=== PATIENT | female | born 1995 | race Caucasian/White ===

== ENCOUNTER 2019-12-04 20:46 | Emergency (ER) | payer MEDICAID ==
[~2019-12-04] VITALS: Ht 165.1 cm; Wt 55.4 kg
--- NOTE | 2019-12-04 21:08 | NUR ---
C/O LEFT FOOT PAIN AND SWELLING X1 DAY. PLACED VITALS SIGNS MONITORS. ERP AT BEDSIDE FOR EVAL.
[2019-12-04] MEDS ORDERED: FLUO20CA19 PO (21:12)
[2019-12-04] MEDS ORDERED: TRAZ-175 PO (21:13)
[2019-12-04] MEDS ORDERED: HYDROcodone/APAP 5/325 TABLET ONE (21:18)
[2019-12-04] MEDS ORDERED: SULFAMETH./TRIMETHOPRIM DS 800MG/160MG TABLET ONE (21:18)
[2019-12-04] MEDS ORDERED: CEPHALEXIN 500 MG CAPSULE ONE (21:18)
[2019-12-04 21:22] VITALS: BP 125/82
--- NOTE | 2019-12-04 21:23 | NUR ---
MEDICATED PER MAR. VSS. PLACED CALL LIGHT WITHIN REACH.
[2019-12-04] MEDS ORDERED: HYDROcodone/APAP 5/325 TABLET PO ONE (21:30)
[2019-12-04] MEDS ORDERED: CEPHALEXIN 500 MG CAPSULE PO ONE (21:30)
[2019-12-04] MEDS ORDERED: SULFAMETH./TRIMETHOPRIM DS 800MG/160MG TABLET PO ONE (21:30)
== END 2019-12-04 21:41 | disposition home or self-care (01) ==
LOC: ED 21:16
DX: L03.116 Cellulitis of left lower limb (principal); F17.200 Nicotine dependence, unspecified, uncomplicated
CPT/HCPCS: 99284

== ENCOUNTER 2019-12-22 01:22 | Emergency (ER) | payer MEDICAID ==
[~2019-12-22] VITALS: Ht 165.1 cm; Wt 50.0 kg
[~2019-12-22 01:22] MED LIST: FLUO20CA19 PO; TRAZ-175 PO
[2019-12-22 01:35] VITALS: BP 101/63
--- NOTE | 2019-12-22 01:35 | NUR ---
THIS IS A 24Y F BIB EMS FROM [facility] FOR MEDICAL CLEARANCE. PT REPORTS USING HEROIN AND METH AFTER BEING CLEAN FOR A PERIOD OF TIME AND NOW WANTS TO DETOX. PT CONNECTED TO MONITORING VSSERNESTO
[2019-12-22 01:39] LABS: BASOPHILS # (AUTO) 0.03 x10^3/uL (0-0.1); BASOPHILS % (AUTO) 1 % (0-1); EOSINOPHILS % (AUTO) 3 % (1-7); LYMPHOCYTES # (AUTO) 1.46 x10^3/uL (1-3.4); LYMPHOCYTES % (AUTO) 41 % (22-44); MD NO; MEAN CORPUSCULAR HEMOGLOBIN 29.1 pg (27.0-34.8); MEAN CORPUSCULAR HGB CONC 32.5 g/dL (32.4-35.8); MEAN CORPUSCULAR VOLUME 89.5 fL (80-100); MEAN PLATELET VOLUME 8.4 fL (7.4-10.4); MONOCYTES # (AUTO) 0.44 x10^3/uL (0.2-0.8); MONOCYTES % (AUTO) 13 % (2-9); NEUTROPHILS # (AUTO) 1.52 x10^3/uL (1.8-6.8); NEUTROPHILS % (AUTO) 43 % (42-75); PLATELET COUNT 273 x10^3/uL (130-400); RED BLOOD COUNT 4.29 x10^6/uL (3.82-5.3); RED CELL DISTRIBUTION WIDTH 13.6 % (9.6-15.2)
[2019-12-22 01:51] LABS: ALANINE AMINOTRANSFERASE 18 U/L (12-78); ALBUMIN 3.4 g/dL (3.4-5.0); ANION GAP 4 mmol/L (5-15); CALCIUM 9.2 mg/dL (8.5-10.1); CHLORIDE 106 mmol/L (98-107); SALICYLATE LEVEL 3.5 mg/dL (2.8-20.0)
[2019-12-22 01:56] LABS: ALKALINE PHOSPHATASE 79 U/L (45-117); BILIRUBIN,TOTAL 0.1 mg/dL (0.2-1.0); TOTAL PROTEIN 7.4 g/dL (6.4-8.2)
[2019-12-22 02:19] LABS: MICROSCOPIC INDICATED
[2019-12-22 02:26] LABS: CULTURE INDICATED? YES
[2019-12-22 02:27] LABS: AMPHETAMINE SCREEN, URINE Positive (Negative); BARBITURATE SCREEN, URINE Negative (Negative); BENZODIAZEPINE SCREEN, URINE Negative (Negative); CANNABINOID SCREEN, URINE Negative (Negative); COCAINE SCREEN, URINE Negative (Negative); METHADONE SCREEN, URINE Negative (Negative); OPIATE SCREEN, URINE Positive (Negative)
--- NOTE | 2019-12-22 03:15 | NUR ---
Patient/Caregiver given discharge instructions and they have confirmed that they understand the instructions. Patient ambulatory with steady gait.
== END 2019-12-22 03:19 | disposition home or self-care (01) ==
LOC: ED 03:00
DX: F15.10 Other stimulant abuse, uncomplicated (principal); F11.10 Opioid abuse, uncomplicated; F17.210 Nicotine dependence, cigarettes, uncomplicated
CPT/HCPCS: 36415; 80053; 80307; 81001; 84703; 85025; 87086; 99283; 99406

== ENCOUNTER 2020-03-17 21:47 | Emergency (ER) | payer MEDICAID ==
[~2020-03-17] VITALS: Ht 165.1 cm; Wt 55.6 kg
--- NOTE | 2020-03-17 22:34 | NUR ---
Attempted to room pt, pt in rr in lobby.
--- NOTE | 2020-03-17 22:48 | NUR ---
Pt amb w/ steady gait to room at this time.
[2020-03-17] MEDS ORDERED: ACETAMINOPHEN 500 MG TABLET ONE (23:27)
[2020-03-17] MEDS ORDERED: ACETAMINOPHEN 500 MG TABLET PO ONE (23:30)
[2020-03-17 23:52] LABS: BASOPHILS # (AUTO) 0.03 x10^3/uL (0-0.1); BASOPHILS % (AUTO) 0 % (0-1); EOSINOPHILS # (AUTO) 0.06 x10^3/uL (0-0.4); EOSINOPHILS % (AUTO) 1 % (1-7); LYMPHOCYTES # (AUTO) 1.43 x10^3/uL (1-3.4); LYMPHOCYTES % (AUTO) 20 % (22-44); MD NO; MEAN CORPUSCULAR HEMOGLOBIN 29.1 pg (27.0-34.8); MEAN CORPUSCULAR HGB CONC 33.4 g/dL (32.4-35.8); MEAN CORPUSCULAR VOLUME 87.1 fL (80-100); MEAN PLATELET VOLUME 8.6 fL (7.4-10.4); MONOCYTES # (AUTO) 0.83 x10^3/uL (0.2-0.8); MONOCYTES % (AUTO) 11 % (2-9); NEUTROPHILS % (AUTO) 68 % (42-75); PLATELET COUNT 279 x10^3/uL (130-400); RED BLOOD COUNT 3.93 x10^6/uL (3.82-5.3); RED CELL DISTRIBUTION WIDTH 15.9 % (9.6-15.2)
--- NOTE | 2020-03-17 23:54 | NUR ---
IV STARTED, SECOND SET OF CULTURES DRAWN. PT TAKEN TO IMAGING.
[2020-03-18 00:01] LABS: ALANINE AMINOTRANSFERASE 33 U/L (12-78); ALBUMIN 4.3 g/dL (3.4-5.0); ANION GAP 10 mmol/L (5-15); CHLORIDE 102 mmol/L (98-107)
[2020-03-18 00:02] LABS: MICROSCOPIC INDICATED
[2020-03-18 00:05] LABS: ALKALINE PHOSPHATASE 78 U/L (45-117); CREATININE 0.61 mg/dL (0.55-1.02); TOTAL PROTEIN 8.2 g/dL (6.4-8.2)
[2020-03-18] MEDS ORDERED: SODIUM CHLORIDE 0.9% 1,000ML IVBOLUS ONE ×2 (02:00)
--- NOTE | 2020-03-18 02:05 | NUR ---
REPORT RECEIVED FROM TEDDY STEINBERG. ASSUMED CARE OF PT. AWAITING FLUIDS TO FINISH BEFORE DISCHARGE
--- NOTE | 2020-03-18 03:03 | NUR ---
PT SLEEPING. VITALS STABLE. AWAITING DISCHARGE PAPERWORK AT THIS TIME
[2020-03-18] MEDS ORDERED: CEFTRIAXONE PMX 1GM/50ML 50 ML ONE (03:20)
--- NOTE | 2020-03-18 03:28 | NUR ---
PT MEDICATED PER EMAR. 5 RIGHTS ADDRESSED.
[2020-03-18] MEDS ORDERED: CEFTRIAXONE PMX 1GM/50ML 50 ML IV ONE (03:30)
[2020-03-18 03:59] VITALS: BP 100/50
--- NOTE | 2020-03-18 05:55 | NUR ---
Patient/Caregiver given discharge instructions and they have confirmed that they understand the instructions. Patient ambulatory with steady gait.
== END 2020-03-18 05:56 | disposition home or self-care (01) ==
LOC: ED 22:17
DX: R21 Rash and other nonspecific skin eruption (principal); R50.9 Fever, unspecified; F17.210 Nicotine dependence, cigarettes, uncomplicated; F15.10 Other stimulant abuse, uncomplicated; F11.10 Opioid abuse, uncomplicated; R00.0 Tachycardia, unspecified; Z72.9 Problem related to lifestyle, unspecified
CPT/HCPCS: 36415; 71046; 80053; 81001; 83605; 84703; 85025; 86592; 87040; 87491; 87591; 87806; 96365; 99284; 99406; J0696; J7030; G0475

== ENCOUNTER 2020-06-06 11:11 | Emergency (ER) | payer MEDICAID ==
[~2020-06-06] VITALS: Ht 165.1 cm; Wt 50.3 kg
[2020-06-06] MEDS ORDERED: DIPHENHYDRAMINE 25 MG CAPSULE ONE (11:37)
[2020-06-06] MEDS ORDERED: DEXAMETHASONE 4 MG TABLET ONE (11:38)
[2020-06-06] MEDS ORDERED: FAMOTIDINE 20 MG TABLET ONE (11:39)
--- NOTE | 2020-06-06 11:46 | NUR ---
PT HAS CO SORE THROAT, BODY ACHES AND COUGH. PT NOT IN RESP DISTRESS.
[2020-06-06] MEDS ORDERED: FAMOTIDINE 20 MG TABLET PO ONE (12:00)
[2020-06-06] MEDS ORDERED: DIPHENHYDRAMINE 25 MG CAPSULE PO ONE (12:00)
[2020-06-06] MEDS ORDERED: DEXAMETHASONE 4 MG TABLET PO ONE (12:00)
[2020-06-06] MEDS ORDERED: KETOROLAC 30 MG/1 ML ONE (12:52)
[2020-06-06 13:00] VITALS: BP 95/67
[2020-06-06] MEDS ORDERED: KETOROLAC 30 MG/1 ML IM ONE (13:00)
--- NOTE | 2020-06-06 13:01 | NUR ---
Patient/Caregiver given discharge instructions and they have confirmed that they understand the instructions. Patient ambulatory with steady gait.
== END 2020-06-06 13:02 | disposition home or self-care (01) ==
LOC: ED 11:35
DX: J02.0 Streptococcal pharyngitis (principal); L50.9 Urticaria, unspecified; F17.200 Nicotine dependence, unspecified, uncomplicated
CPT/HCPCS: 87880; 96372; 99284; J1885; Q0163